=== PATIENT | male | born 1970 | race Caucasian/White ===

== ENCOUNTER 2018-03-17 22:01 | Emergency (ER) | payer OTHER ==
[2018-03-17] MEDS: Diazepam 5 MG Tab PO ONE (22:20)
[2018-03-17] MEDS: Ketorolac 60 MG/2 ML SDV IM ONE (22:23)
[2018-03-17] MEDS: Dexamethasone 4 MG/ML 30 ML MDV IM ONE (22:30)
[2018-03-17] MEDS ORDERED: Acetaminophen/HYDROcodone 325-5 MG Tab ONE (23:15)
[2018-03-17] MEDS ORDERED: Cyclobenzaprine 10 MG Tab ONE (23:15)
[2018-03-17] MEDS ORDERED: Ibuprofen 400 MG Tab ONE (23:15)
[2018-03-18] MEDS: Acetaminophen/HYDROcodone 325-5 MG Tab PO ONE (00:15)
[2018-03-18] MEDS: Ketorolac 60 MG/2 ML SDV IM ONE (03:04)
[2018-03-18] MEDS: Ketorolac 60 MG/2 ML SDV ONE (03:07)
--- NOTE | 2018-03-18 09:31 | CT ---
UNENHANCED ABDOMEN AND PELVIC CT, 03/18/18 No priors. The lung bases are clear. The heart size is normal. No significant pericardial effusion. The liver is abnormal. It has lobulated contour and mildly heterogeneous attenuation suggesting cirrhosis. No focal hepatic lesions. The gallbladder appears normal. The spleen is grossly enlarged. No focal splenic lesions. 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 There is also a venous collateral circulation medial to the spleen. These findings are consistent with portal hypertension. The pancreas appears normal. The right and left adrenals appear normal. The right and left kidneys appear normal. No nephrocalcinosis or nephrolithiasis. No hydronephrosis or hydroureter. The bladder is partially fluid filled. There is mild diffuse bladder wall thickening. This is probably related to nondistention. Cystitis should be considered. The appendix is not dilated. No evidence of appendicitis. There is diverticulosis of the descending and sigmoid colon. No evidence of diverticulitis. No free air. No free fluid. No dilated loops of bowel. No adenopathy. No aortic aneurysm. There is a small umbilical hernia containing fat. IMPRESSION: Abnormal exam. See above. [id number] [facility]
--- NOTE | 2018-03-18 14:44 | ER ---
DATE OF SERVICE: 03/17/2018 HISTORY OF PRESENT ILLNESS: This 47-year-old gentleman presents complaining of lower back pain, tightness around his [id number] back. He states he does have a history of renal stones. He has also a history of surgery. He states he has pain all the time, it has gotten more intense, described as spasm that tighten up bringing him to floor. No nausea. No vomiting. No fever. No chills. He denies any blood in his urine. PHYSICAL EXAMINATION: VITAL SIGNS: Stable and afebrile. MUSCULOSKELETAL: He has lumbar paraspinal muscle tenderness, also the suggestion of CVA tenderness. ABDOMEN: Soft, flat, nondistended. Positive bowel sounds. No localized tenderness. No guarding. No rebound. HEART: Regular rate and rhythm. Normal S1, S2. LABORATORY DATA: Urinalysis did not reveal any pus cells and nor any red blood cells. CT scan did not show any evidence of kidney stone. ASSESSMENT: Lumbar spasm. PLAN: Toradol 60 mg and Decadron 10 mg. He also received Valium 10 mg orally and 2 Vicodin with improvement of his symptoms. He was sent home on Vicodin 2 by mouth every 6 hours for breakthrough pain not relieved with Motrin 600 t.i.d. and Flexeril 10 mg t.i.d. I asked him to follow up with his primary doctor on Wednesday. GERMAINE /[id number] АННА
== END 2018-03-18 03:55 | disposition home or self-care (01) ==
LOC: LB.ED 22:01
DX: M62.830 Muscle spasm of back (principal); Z87.442 Personal history of urinary calculi
CPT/HCPCS: 74176; 81001; 96372; 99284; A9270; J1100; J1885

== ENCOUNTER 2020-11-09 22:07 | Emergency (ER) | payer OTHER ==
--- NOTE | 2020-11-09 22:41 | EDM.PDOC ---
ED HPI GENERAL MEDICAL PROBLEM - General Chief Complaint: Lower Extremity Injury/Pain Stated Complaint: LEFT ANKLE INJURY Time Seen by Provider: 11/09/20 22:25 Source of Information: Reports: Patient History Limitations: Reports: No Limitations - History of Present Illness INITIAL COMMENTS - FREE TEXT/NARRATIVE: 50 year old male with PMH of autoimmune hepatitis, injured left ankle while walking tonight. Was able to walk with some pain. Denies any other injuries. Left ankle swollen, tender to the touch. CMS +, bilateral pedal pulses present. ETOH use tonight. Onset: Today Location: Reports: Lower Extremity, Left Quality: Reports: Ache Severity: Mild Improves with: Reports: None Worsens with: Reports: Movement Associated Symptoms: Reports: No Other Symptoms - Related Data Allergies Allergy/AdvReac Type Severity Reaction Status Date / Time No Known Allergies Allergy Verified 03/17/18 22:20 Past Medical History HEENT History: Reports: Other (See Below) Other HEENT History: wears glasses Cardiovascular History: Reports: Heart Murmur Respiratory History: Reports: None Genitourinary History: Reports: Other (See Below) Other Genitourinary History: Had one kidney stone before Musculoskeletal History: Reports: Back Pain, Chronic - Past Surgical History Musculoskeletal Surgical History: Reports: Other (See Below) Other Musculoskeletal Surgeries/Procedures:: Had back surgery Social & Family History - Caffeine Use Caffeine Use: Reports: Coffee, Soda Review of Systems - Review of Systems Review Of Systems: See Below Constitutional: Reports: No Symptoms Eyes: Reports: No Symptoms Ears: Reports: No Symptoms Nose: Reports: No Symptoms Mouth/Throat: Reports: No Symptoms Respiratory: Reports: No Symptoms Cardiovascular: Reports: No Symptoms GI/Abdominal: Reports: No Symptoms Genitourinary: Reports: No Symptoms Musculoskeletal: Reports: Leg Pain, Foot Pain (left ankle), Joint Pain Skin: Reports: No Symptoms Neurological: Reports: No Symptoms Psychiatric: Reports: No Symptoms ED EXAM, GENERAL - Physical Exam Exam: See Below Exam Limited By: No Limitations General Appearance: Alert, No Apparent Distress Ears: Normal External Exam Nose: Normal Inspection Head: Atraumatic Neck: Normal Inspection, Non-Tender, Full Range of Motion Respiratory/Chest: No Respiratory Distress, Lungs Clear, Normal Breath Sounds Cardiovascular: Normal Peripheral Pulses, Regular Rate, Rhythm, No Murmur Peripheral Pulses: 3+: Dorsalis Pedis (L), Dorsalis Pedis (R) GI/Abdominal: Normal Bowel Sounds Back Exam: Normal Inspection, Full Range of Motion Extremities: Normal Inspection, Joint Swelling Neurological: Alert, Oriented, No Motor/Sensory Deficits Psychiatric: Normal Affect, Normal Mood Skin Exam: Warm, Dry, Intact Lymphatic: No Adenopathy Course - Orders/Labs/Meds Orders: Active Orders 24 hr Category Date Time Status Ankle Min 3V Lt [CR] Stat Exams 11/09/20 22:30 Ordered Departure - Departure Time of Disposition: 23:04 Disposition: DC/Tfer to Medicaid [facility] Condition: Good Clinical Impression: Ankle sprain Qualifiers: Encounter type: initial encounter Involved ligament of ankle: unspecified ligament Laterality: left Qualified Code(s): S93.402A - Sprain of unspecified ligament of left ankle, initial encounter - Discharge Information *PRESCRIPTION DRUG MONITORING PROGRAM REVIEWED*: Not Applicable *COPY OF PRESCRIPTION DRUG MONITORING REPORT IN PATIENT BRAULIO: Not Applicable Instructions: Crutch Use, Adult, [id number], Ankle Sprain, [id number] Additional Instructions: Use ice for the next 24-48 hours for 20 minutes every 3-4 hours. Elevate your left ankle. Use the crutches when walking. Gently move your toes frequently. Return to ED for any increased or new concerning symptoms. Patient declines any pain medication at this time. - My Orders Last 24 Hours: My Active Orders 11/09/20 22:30 Ankle Min 3V Lt [CR] Stat - Assessment/Plan Last 24 Hours: My Active Orders 11/09/20 22:30 Ankle Min 3V Lt [CR] Stat Plan: Patient will go home on crutches with an air ankle splint. Instructed him to ice and elevate left ankle. He will wear the ankle brace when walking.
--- NOTE | 2020-11-10 11:18 | CR ---
Date of Service: 11/09/20 Clinical Data: injury LEFT ANKLE: There is prominent soft tissue swelling over the lateral malleolus. No acute fracture or dislocation. No lytic or blastic bone lesions. [id number] [facility]
== END 2020-11-09 23:10 | disposition home or self-care (01) ==
LOC: LB.ED 22:07
DX: S93.402A Sprain of unspecified ligament of left ankle, initial encounter (principal); X58.XXXA Exposure to other specified factors, initial encounter
CPT/HCPCS: 73610-LT; 99283

== ENCOUNTER 2021-08-15 11:45 | Emergency (ER) | payer OTHER ==
[2021-08-15] MEDS ORDERED: Sodium Chloride 0.9% 1,000 ML IV ONE (12:50)
[2021-08-15] MEDS ORDERED: methylPREDNISolone Sodium Succinate 125 MG/2 ML SDV IVPUSH ONE (14:12)
--- NOTE | 2021-08-15 14:21 | EDM.PDOC ---
ED HPI GENERAL MEDICAL PROBLEM - General Chief Complaint: Respiratory Problem Stated Complaint: FEVER / NEGATIVE COVID TEST Time Seen by Provider: 08/15/21 12:00 - History of Present Illness INITIAL COMMENTS - FREE TEXT/NARRATIVE: Pt comes to the ER with his with C/O a bad cough, running a Temp and chest congestion. He was diagnosed with Covid on 08-01-21, and has been on Clindamycin since 08-11-21. He does not feel he is getting any better. He will cough until he is exhausted. He was coughing up phlegm earlier, but not much today. - Related Data Allergies Allergy/AdvReac Type Severity Reaction Status Date / Time bee venom protein (honey bee) Allergy Hives Verified 08/15/21 12:40 morphine AdvReac Burning Verified 08/15/21 12:40 Home Meds: Home Meds Clindamycin HCl 450 mg PO QID 08/15/21 [History] mycophenolate mofetiL [Cellcept] 1,000 mg PO BID 08/15/21 [History] predniSONE 12.5 mg PO DAILY 08/15/21 [History] Past Medical History HEENT History: Reports: Other (See Below) Other HEENT History: wears glasses Cardiovascular History: Reports: Heart Murmur Respiratory History: Reports: None Genitourinary History: Reports: Other (See Below) Other Genitourinary History: Had one kidney stone before Musculoskeletal History: Reports: Back Pain, Chronic Immunologic History: Reports: Other (See Below) Other Immunologic History: Hepatitis - Infectious Disease History Infectious Disease History: Reports: Influenza, Other (See Below) Other Infectious Disease History: Covid 19 - Past Surgical History Musculoskeletal Surgical History: Reports: Other (See Below) Other Musculoskeletal Surgeries/Procedures:: Had back surgery Social & Family History - Caffeine Use Caffeine Use: Reports: Coffee, Soda - Recreational Drug Use Recreational Drug Use: No ED ROS GENERAL - Review of Systems Review Of Systems: Comprehensive ROS is negative, except as noted in HPI. Constitutional: Reports: Fever, Weakness Respiratory: Reports: Cough ED EXAM, GENERAL - Physical Exam Exam: See Below Eye Exam: Bilateral Eye: Other (sclera is yellowish around the perimeter bilate ral.) Course - Vital Signs Last Recorded V/S: Last Vital Signs Temp 98.1 F 08/15/21 12:35 Pulse 69 08/15/21 12:35 Resp 18 08/15/21 12:35 BP 116/80 08/15/21 12:35 Pulse Ox 96 08/15/21 12:35 - Orders/Labs/Meds Orders: Active Orders 24 hr Category Date Time Status Chest 1V Frontal [CR] Stat Exams 08/15/21 12:49 Taken Sodium Chloride 0.9% [Normal Saline] 1,000 ml Med 08/15/21 12:50 Active IV .BOLUS Medication Orders Sodium Chloride (Normal Saline) 1,000 mls @ 500 mls/hr IV .BOLUS ONE Stop: 08/15/21 14:49 Last Admin: 08/15/21 13:11 Dose: 500 mls/hr Documented by: KAMALA Labs: Laboratory Tests 08/15/21 08/15/21 08/15/21 Range/Units 12:48 13:00 13:00 WBC 2.4 L (4.0-11.0) K/uL RBC 5.21 (4.50-6.50) M/uL Hgb 15.6 (13.0-18.0) g/dL Hct 45.5 (40.0-54.0) % MCV 87 (76-96) fL MCH 29.9 (27.0-32.0) pg MCHC 34.3 (31.0-35.0) g/dL RDW 15.1 (11.0-16.0) % Plt Count 61 L (150-400) K/uL MPV 12.4 H (6.0-10.0) fL Neut % (Auto) 71.8 H (45.0-70.0) % Lymph % (Auto) 18.1 L (20.0-40.0) % Otero % (Auto) 9.7 (3.0-10.0) % Eos % (Auto) 0.0 L (1.0-5.0) % Baso % (Auto) 0.4 (0.0-0.5) % Neut # (Auto) 1.71 L (2.00-7.50) K/uL Lymph # (Auto) 0.43 L (1.50-4.00) K/uL Otero # (Auto) 0.23 (0.20-0.80) K/uL Eos # (Auto) 0.00 L (0.04-0.40) K/uL Baso # (Auto) 0.01 L (0.02-0.10) K/uL D-Dimer, Quantitative 381 (0-400) ng/mL Sodium 133 L (136-145) mmol/L Potassium 3.9 (3.5-5.1) mmol/L Chloride 103 (98-107) mmol/L Carbon Dioxide 23.2 (21.0-32.0) mmol/L Anion Gap 10.7 (5.0-15.0) mmol/L BUN 15 D (8-26) mg/dL Creatinine 1.07 (0.70-1.30) mg/dL Est Cr Clr Drug Dosing 90.23 mL/min Estimated GFR (MDRD) > 60 (>60) MLS/MIN BUN/Creatinine Ratio 14.0 (6-25) Glucose 115 H (74-100) mg/dL Lactic Acid (0.4-2.0) mmol/L Calcium 7.7 L (8.5-10.1) mg/dL Total Bilirubin 4.2 H (0.0-1.0) mg/dL AST 431 H (15-37) U/L ALT 604 H (12-78) U/L Alkaline Phosphatase 97 (46-116) U/L Total Protein 7.6 (6.4-8.2) g/dL Albumin 2.2 L (3.4-5.0) g/dL Globulin 5.4 H (2.2-4.2) g/dL Albumin/Globulin Ratio 0.4 L (0.8-2.0) Lipase (73-393) U/L 08/15/21 08/15/21 Range/Units 13:00 13:00 WBC (4.0-11.0) K/uL RBC (4.50-6.50) M/uL Hgb (13.0-18.0) g/dL Hct (40.0-54.0) % MCV (76-96) fL MCH (27.0-32.0) pg MCHC (31.0-35.0) g/dL RDW (11.0-16.0) % Plt Count (150-400) K/uL MPV (6.0-10.0) fL Neut % (Auto) (45.0-70.0) % Lymph % (Auto) (20.0-40.0) % Otero % (Auto) (3.0-10.0) % Eos % (Auto) (1.0-5.0) % Baso % (Auto) (0.0-0.5) % Neut # (Auto) (2.00-7.50) K/uL Lymph # (Auto) (1.50-4.00) K/uL Otero # (Auto) (0.20-0.80) K/uL Eos # (Auto) (0.04-0.40) K/uL Baso # (Auto) (0.02-0.10) K/uL D-Dimer, Quantitative (0-400) ng/mL Sodium (136-145) mmol/L Potassium (3.5-5.1) mmol/L Chloride (98-107) mmol/L Carbon Dioxide (21.0-32.0) mmol/L Anion Gap (5.0-15.0) mmol/L BUN (8-26) mg/dL Creatinine (0.70-1.30) mg/dL Est Cr Clr Drug Dosing mL/min Estimated GFR (MDRD) (>60) MLS/MIN BUN/Creatinine Ratio (6-25) Glucose (74-100) mg/dL Lactic Acid 1.6 (0.4-2.0) mmol/L Calcium (8.5-10.1) mg/dL Total Bilirubin (0.0-1.0) mg/dL AST (15-37) U/L ALT (12-78) U/L Alkaline Phosphatase (46-116) U/L Total Protein (6.4-8.2) g/dL Albumin (3.4-5.0) g/dL Globulin (2.2-4.2) g/dL Albumin/Globulin Ratio (0.8-2.0) Lipase 196 (73-393) U/L Meds: Medications Generic Name Dose Route Start Last Admin Trade Name Freq PRN Reason Stop Dose Admin Sodium Chloride 1,000 mls @ 500 mls/hr 08/15/21 12:50 08/15/21 13:11 Normal Saline IV 08/15/21 14:49 500 mls/hr .BOLUS ONE Administration Discontinued Medications Generic Name Dose Route Start Last Admin Trade Name Freq PRN Reason Stop Dose Admin Methylprednisolone Sodium Succinate 125 mg 08/15/21 14:12 Methylprednisolone Sodium Succinate 125 Mg/2 Ml Sdv IVPUSH 08/15/21 14:13 ONETIME ONE - Re-Assessments/Exams Free Text/Narrative Re-Assessment/Exam: 08/15/21 14:22 Labs are ok, His LFT's are up, but lower than 2 days ago. CXR shows what looks like Bronchitis type changes. I will treat him with Solu medrol IV. He will increase his PO prednisone to 20 mg a day x 4 days, then go back to 10 mg daily. And he will start Symbicort 80/4.5. Discharge home, rest a day or 2 then increase activity as tolerated. Follow up as needed. Departure - Departure Time of Disposition: 14:40 Disposition: Home, Self-Care 01 Condition: Good Clinical Impression: Bronchitis due to 2019 novel coronavirus - Discharge Information *PRESCRIPTION DRUG MONITORING PROGRAM REVIEWED*: Yes *COPY OF PRESCRIPTION DRUG MONITORING REPORT IN PATIENT BRAULIO: Yes Instructions: Budesonide; Formoterol Inhalation aerosol Referrals: PCP,None [Primary Care Provider] - Forms: ED Department Discharge Additional Instructions: *Increase Prednisone dose to 20mg daily for 4 days, then continue taking your regular home dose *supervisor [employer] Symbicort from the pharmacy *If symptoms worsen or persist return to the ER If you have any questions or concerns please call us at [phone] Sepsis Event Note (ED) - Evaluation Sepsis Screening Result: No Definite Risk - Focused Exam Vital Signs: Vital Signs Temp Pulse Resp BP Pulse Ox 08/15/21 12:35 98.1 F 69 18 116/80 96 - My Orders Last 24 Hours: My Active Orders 08/15/21 12:49 Chest 1V Frontal [CR] Stat 08/15/21 12:50 Sodium Chloride 0.9% [Normal Saline] 1,000 ml IV .BOLUS - Assessment/Plan Last 24 Hours: My Active Orders 08/15/21 12:49 Chest 1V Frontal [CR] Stat 08/15/21 12:50 Sodium Chloride 0.9% [Normal Saline] 1,000 ml IV .BOLUS
[2021-08-15] MEDS ORDERED: methylPREDNISolone Sodium Succinate 125 MG/2 ML SDV ONE (14:24)
--- NOTE | 2021-08-15 15:59 | CR ---
DATE OF SERVICE: 08/15/2021 CLINICAL DATA: Cough - SOB. AP CHEST: Comparison is made to a prior exam dated 08/02/2017. The heart size is normal. There is a horizontal elongated mass-like density in the right mid lung that extends from the right hilum to the pleura peripherally. This may represent pneumonia with consolidation. It may be subsegmental atelectasis. I cannot exclude a malignant process. There are patchy densities noted in both lungs that were not present on the prior exam. The possibility of viral pneumonia should be considered. No pneumothorax. No pleural effusions. Chest CT is recommended to further evaluate. [id number] [facility]
== END 2021-08-15 14:45 | disposition home or self-care (01) ==
LOC: LB.ED 11:45
DX: U07.1 COVID-19 (principal); J40 Bronchitis, not specified as acute or chronic; Z91.030 Bee allergy status; Z88.5 Allergy status to narcotic agent
CPT/HCPCS: 36415; 71045; 80053; 83605; 83690; 85025; 85379; 96374; 99283-25; J2930; J7030